=== PATIENT | female | born 1965 | race Caucasian/White ===

== ENCOUNTER 2024-07-11 10:28 | Emergency (ER) | payer BC, SELFPAY ==
[2024-07-11 10:45] VITALS: BP 117/75
[2024-07-11 12:00] VITALS: BP 108/77
[2024-07-11 12:32] VITALS: BMI 29.9
[2024-07-11 12:37] VITALS: BP 108/77
[2024-07-11 12:46] LABS: % Basophils 0.5 % (0-2); % Eosinophils 2.8 % (0-6); % Immature Granulocytes 0.3 % (0-0.5); % Lymphocytes 21.3 % (20.5-51.1); % Monocytes 5.3 % (1.7-9.3); % Neutrophils 69.8 % (42.2-75.2); Absolute Eosinophils 0.2 10^3/uL (0-0.7); Absolute Lymphocytes 1.3 10^3/uL (1.2-3.4); Absolute Monocytes 0.3 10^3/uL (0.1-0.6); Absolute Neutrophils 4.3 10^3/uL (1.4-6.5); Hematocrit 40.4 % (37.0-47.0); Hemoglobin 12.8 g/dL (12.0-16.0); Mean Corp Hgb Conc. 31.7 g/dL (33.0-37.0); Mean Corpuscular Hgb 29.2 pg (27.0-31.0); Mean Platelet Volume 10.6 fL (7.4-10.4); Nucleated Red Blood Cells % 0 %; Platelet Count 253 10^3/uL (130-400); Red Blood Cell Count 4.39 10^6/uL (4.20-5.40); Red Cell Dist. Width 13.1 % (11.5-14.5); White Blood Cell Count 6.1 10^3/uL (4.8-10.8)
--- NOTE | 2024-07-11 12:48 | ED.GENMED ---
History of Present Illness
<Cheyenne López MD, Resident - Last Filed: 07/11/24 14:44>
General
Chief Complaint: Cardiac Symptoms
Time Seen by Provider: 07/11/24 11:51
History of Present Illness
History of Present Illness:
59 y/o female with pmhx of hypothyroidism and hyperlipidemia presenting to the ED with pain located in her posterior left hemithorax, and nausea. Pt notes she woke up with pain this morning and was feeling tired even after having a good night sleep.
Also notes occipital headache during the night that persisted till this morning. Patient states pain does not radiate, but increases with taking deep breaths. Denies shortness of breath, cough, recent travel, abdominal pain, vomiting, recent travel,
recent surgery. Notes she has chest discomfort and describes that as indigestion. Denies chest pain.
Past History
<Chele Fitzgerald MD - Last Filed: 07/11/24 16:39>
Past History
ED Past Medical History: Hypercholesterolemia and Hypothyroidism
ED Past Surgical History: Other (Right shoulder surgery in September 2021)
Social History
Tobacco: Non-smoker
Alcohol: Occasional
Drug: None
Personal:
Living: with family
Review of Systems
<Cheyenne López MD, Resident - Last Filed: 07/11/24 14:44>
Review of Systems
Constitutional: Reports fatigue
EENT: Reports no symptoms
Respiratory: Reports no symptoms
Cardiac: Reports no symptoms
ABD/GI: Reports no symptoms
: Reports no symptoms
Musculoskeletal: Reports other (posterior chest pain)
Skin: Reports no symptoms
Neurological: Reports headache
Endocrine: Reports no symptoms
Hematologic/Lymphatic: Reports no symptoms
Psychiatric: Reports no symptoms
Phy Exam
<Cheyenne López MD, Resident - Last Filed: 07/11/24 14:44>
Physical Exam
Physical Exam:
GENERAL: Alert, in no apparent distress
EYE: pupils equal and reactive.
NECK: Supple, no significant adenopathy.
ENT: o/p clr, mmm.
CARDIAC: Regular rate and rhythm.
LUNGS: Clear breath sounds bilaterally, no acute respiratory distress, no wheezes/rales/rhonchi. Pain not reproducible.
ABDOMEN: Soft, without focal tenderness, no r/g, no cvat.
NEUROLOGICAL: Alert and oriented, no focal neuro deficits
SKIN: Warm and dry, skin intact.
MUSCULOSKELETAL: No edema, well perfused.
PSYCH: Normal and appropriate interaction.
Course
<Cheyenne López MD, Resident - Last Filed: 07/11/24 14:44>
Orders/Labs/Results
Orders:
Orders
07/11/24 10:48
Electrocardiogram (*1) Urgent
Reason for Study: Other
Other Reason for Exam: epigastric pain that radiates to shoulders
EKG- Treatment ONCE
07/11/24 12:34
Complete Blood Count/With Diff Urgent
Comprehensive Metabolic Panel Urgent
D-Dimer Urgent
Comment: D DIMER ADDED ON BY FLOOR 1:30PM 07-11-24
PTT Urgent
Troponin I Urgent
07/11/24 12:52
CR Chest - 2 Views Urgent
Comment:
Reason For Exam: chest pain
07/11/24 13:12
Ibuprofen [Motrin] 800 mg PO NOW STA
07/11/24 13:31
Add On- LAB Stat
Tests Added?: D Dimer
07/11/24 13:33
EKG- Treatment ONCE
07/11/24 15:43
Troponin I Urgent
Abnormal Lab Results
07/11/24
12:34
MCHC 31.7 L g/dL
(33.0-37.0)
MPV 10.6 H fL
(7.4-10.4)
BUN 25 H mg/dl
(7-17)
AST 38 H U/L
(14-36)
ALT 47 H U/L
(0-35)
07/11/24 12:34
07/11/24 12:34
Vital Signs
Initial and Last Documented VS:
Initial Vital Signs
Temp Pulse Resp BP Pulse Ox
97.8 F 85 18 117/75 100
07/11/24 10:45 07/11/24 10:45 07/11/24 10:45 07/11/24 10:45 07/11/24 10:45
Last Documented Vital Signs
Temp Pulse Resp BP Pulse Ox
97.8 F 70 19 118/71 100
07/11/24 10:45 07/11/24 14:45 07/11/24 14:45 07/11/24 13:01 07/11/24 14:30
<Chele Fitzgerald MD - Last Filed: 07/11/24 16:39>
Orders/Labs/Results
Orders:
Orders
07/11/24 10:48
Electrocardiogram (*1) Urgent
Reason for Study: Other
Other Reason for Exam: epigastric pain that radiates to shoulders
EKG- Treatment ONCE
07/11/24 12:34
Complete Blood Count/With Diff Urgent
Comprehensive Metabolic Panel Urgent
D-Dimer Urgent
Comment: D DIMER ADDED ON BY FLOOR 1:30PM 07-11-24
PTT Urgent
Troponin I Urgent
07/11/24 12:52
CR Chest - 2 Views Urgent
Comment:
Reason For Exam: chest pain
07/11/24 13:12
Ibuprofen [Motrin] 800 mg PO NOW STA
07/11/24 13:31
Add On- LAB Stat
Tests Added?: D Dimer
07/11/24 13:33
EKG- Treatment ONCE
07/11/24 15:43
Troponin I Urgent
Abnormal Lab Results
07/11/24
12:34
MCHC 31.7 L g/dL
(33.0-37.0)
MPV 10.6 H fL
(7.4-10.4)
BUN 25 H mg/dl
(7-17)
AST 38 H U/L
(14-36)
ALT 47 H U/L
(0-35)
07/11/24 12:34
07/11/24 12:34
Vital Signs
Initial and Last Documented VS:
Initial Vital Signs
Temp Pulse Resp BP Pulse Ox
97.8 F 85 18 117/75 100
07/11/24 10:45 07/11/24 10:45 07/11/24 10:45 07/11/24 10:45 07/11/24 10:45
Last Documented Vital Signs
Temp Pulse Resp BP Pulse Ox
97.8 F 70 19 118/71 100
07/11/24 10:45 07/11/24 14:45 07/11/24 14:45 07/11/24 13:01 07/11/24 14:30
<Cheyenne López MD, Resident - Last Filed: 07/11/24 14:44>
MDM/Problems Addressed
Differential Diagnosis Includes:
ACS
PE
Pneumothorax
PNA
Aortic aneurism/dissection
Musculoskeletal pain
MDM/Problems Addressed:
- EKG, Troponin
- CBC, CMP
- D-dimer
- Chest x-ray
- Pain management
<Cheyenne López MD, Resident - Last Filed: 07/11/24 14:44>
*Critical Care Note
Total Time (30-74mins, 75-104mins- exclusive of procedures): Not Applicable
<Cheyenne López MD, Resident - Last Filed: 07/11/24 14:44>
Update Note
Update Note:
- Lab tests normal other than mildly elevated liver enzymes. Patient is aware of that and has been advised not to drink alcohol or take tylenol.
- Troponin x1 negative. D-dimer negative.
- EKG normal sinus rhythm.
- Chest x-ray no pneumothorax, pleural effusion, mediastinal shift. Left basilar discoid atelectasis.
ED Attending Note
<Chele Fitzgerald MD - Last Filed: 07/11/24 16:39>
ED Attending Note
Patient seen and examined by attending physician: Yes
I performed a history and physical exam of patient and discussed management with resident, I reviewed resident's note and agree with documented findings and plan of care.: Yes
ED Attending Note:
I have seen and evaluated the patient with a [id number] encounter. I have spoken to the [resident] and involved in the medical history, the physical exam, medical decision making.
Evaluation and management service: agree unless noted differently below.
Results interpretation: agree unless noted differently below.
Patient is a 59-year-old woman with history of hypothyroidism and hyperlipidemia presenting to the emergency department with shoulder pain and chest pain. Patient states that she woke up around 5 AM and developed left-sided shoulder discomfort.
She states that it is pleuritic. Then around 8 AM she woke up and noticed that the pain was also in her chest. It is a slight discomfort and she felt nauseous and tired. She does state that she has had a headache since last night. Does feel like
her usual headaches and she would not have thought anything of it however now she is having shoulder pain and chest pain. She denies any family history of cardiac disease. She did see a spiral weaver a few years ago and had a negative stress test.
She denies any exertional chest pain prior to this and this pain is not exertional. She denies any hemoptysis malignancy leg swelling hormone use or family history of personal history of blood clots.
GENERAL: in no acute distress
HEENT: normocephalic, extraocular movements intact, moist oral mucosa
NECK: normal inspection
RESPIRATORY: no respiratory distress, clear to auscultation bilaterally
CARDIOVASCULAR: regular rate and rhythm, 2+ radial pulses bilaterally, reproducible chest wall tenderness to the left chest
ABDOMEN/: soft, non-distended, non-tender to palpation, no rebound or guarding
EXTREMITIES: non-tender, no edema/swelling
NEUROLOGIC: awake and alert, moves all extremities
SKIN: warm
59-year-old woman presenting to the emergency department left shoulder pain and chest pain since 5 AM. Vitals are notable for regular heart rate in the 80s and exam is reassuring. She does have reproducible chest wall tenderness. Differential
includes a ACS versus PE versus musculoskeletal. The headache is similar to her prior and and she denies any red flag features such as worst headache of her life or thunderclap. She does not have any meningeal signs. Will check blood work
including troponin and dimer. EKG per my interpretation normal sinus rhythm. Will check chest x-ray. Will give Motrin for the headache.
On reevaluation patient states that the pain has improved. Delta troponin negative. Chest x-ray with no acute abnormality. Will discharge at this time with [facility] follow-up.
-
Portions of this chart may have been created with voice recognition software.� Occasional wrong word or��sound alike� substitutions may have occurred due to the inherent limitations of voice recognition software.
Discharge Plan
Departure
Patient Disposition: Home (Routine Discharge)
Date of Disposition: 07/11/24
Time of Disposition: 16:37
Patient with high blood pressure during this ER visit?: No
Discharge Problem:
Chest pain
Instructions: Chest Pain [facility] Follow Up
Prescriptions:
No Action
levothyroxine 50 mcg Tablet
50 mcg PO DAILY
sertraline 100 mg Tablet
100 mg PO HS
rosuvastatin 10 mg Tablet
10 mg PO HS
iron
65 mg PO HS
magnesium
500 mg PO HS
potassium
99 mg PO DAILY
oxycodone 5 mg tablet
5 mg PO Q4HPRN PRN (Reason: breakthrough/severe pain) Qty: 10 0RF
Referrals:
Denis Lindsay PA-C [Family Provider] -
Activity Restrictions/Additional Instructions:
You were evaluated in the Emergency Department today for chest pain. Your evaluation has shown no signs of medical conditions requiring emergent intervention at this time, however we recommend that you follow up with your primary care physician or
your spiral weaver as soon as possible for further testing as an outpatient.
Please schedule an appointment for follow up with your primary care physician as soon as possible.
Return to the Emergency Department if you experience worsening or uncontrolled chest pain, shortness of breath, light headedness, feeling faint, nausea, vomiting, or any other concerning symptoms.
Thank you for choosing us for your care.
Interventions
Interventions:
*Risk Screen - Suicide Last Done: 07/11/24 10:45
*General Assessment Last Done: 07/11/24 10:45
*Neglect/Abuse Screening Last Done: 07/11/24 10:45
*ED COVID-19 Vaccine History Last Done: 07/11/24 12:37
ED- Cardiac Assessment Last Done: 07/11/24 12:37
ED- Pulmonary Assessment Last Done: 07/11/24 12:40
Discharge Date and Time
Print Language: MAURITIAN
[2024-07-11 13:00] LABS: APTT 26.5 Sec (23.4-35.0)
[2024-07-11 13:01] VITALS: BP 118/71
[2024-07-11 13:01] LABS: ALT (SGPT) 47 U/L (0-35); AST (SGOT) 38 U/L (14-36); Albumin 4.4 g/dl (3.5-5.0); Alkaline Phosphatase 85 U/L (38-126); Blood Urea Nitrogen 25 mg/dl (7-17); Calcium 9.4 mg/dl (8.4-10.2); Carbon Dioxide 28 mmol/L (22-30); Chloride 105 mmol/L (98-107); Estimated Creatinine Clearance 83 ml/min; Glucose 94 mg/dl (70-99); Potassium 4.6 mmol/L (3.5-5.1); Sodium 140 mmol/L (135-145); Total Bilirubin 0.4 mg/dl (0.2-1.3); Total Protein 6.8 g/dl (6.3-8.2); eGFR > 60.00
[2024-07-11 13:08] LABS: Troponin I < 0.012 ng/ml
[2024-07-11] MEDS: MOTRIN 800 MG PO (13:35)
[2024-07-11 13:43] LABS: D-Dimer 0.29 ug/mlFEU (0.00-0.50)
[2024-07-11 16:14] LABS: Troponin I < 0.012 ng/ml
== END 2024-07-11 16:54 | disposition home or self-care (01) ==
LOC: EMR 10:28
PROVIDERS: Emergency Medicine; EMERGENCY PHYSICIAN Student in an Organized Health Care Education/Training Program; FAMILY PHYSICIAN Physician Assistant Medical
DX: R07.89 Other chest pain (principal); R51.9 Headache, unspecified; M25.512 Pain in left shoulder; E03.9 Hypothyroidism, unspecified; E78.00 Pure hypercholesterolemia, unspecified
CPT/HCPCS: 99285; 71046; 80053; 84484; 85025; 85379; 85730; 93005

== ENCOUNTER → 2024-07-15 08:18 | Outpatient (REF) | payer BC, SELFPAY | LOC: HWWDC 08:18 | PROVIDERS: ATTENDING PHYSICIAN Nurse Practitioner Adult Health; FAMILY PHYSICIAN Physician Assistant Medical | DX: Z12.31 Encounter for screening mammogram for malignant neoplasm of breast (principal); M85.80 Other specified disorders of bone density and structure, unspecified site | CPT/HCPCS: 77063; 77067; 77080 ==